=== PATIENT | female | born 2005 | race Caucasian/White ===

== ENCOUNTER 2024-12-04 23:24 | Emergency (ER) | payer OTHER ==
[~2024-12-04] VITALS: Ht 167.6 cm; Wt 68.0 kg
[2024-12-04 23:29] VITALS: TEMP 36.6; O2SAT 99
[2024-12-04] MEDS ORDERED: ACET-2708 MT (23:32)
[2024-12-04 23:46] VITALS: TEMP 97.8
[2024-12-04] MEDS: ACETAMINOPHEN 325MG TABLET PO ONE (23:46)
[2024-12-04] MEDS: LIDOCAINE 5% PATCH TOP SCH (23:49)
[2024-12-04 23:53] VITALS: BP 126/77; PULSE 81; RESP 16; O2SAT 99
== END 2024-12-05 | disposition home or self-care (01) ==
LOC: ER 23:24
DX: S00.83XA Contusion of other part of head, initial encounter (principal); X58.XXXA Exposure to other specified factors, initial encounter; Y93.89 Activity, other specified; Y92.89 Other specified places as the place of occurrence of the external cause; Y99.8 Other external cause status
CPT/HCPCS: 99283